=== PATIENT | female | born 1960 | race Caucasian/White ===

== ENCOUNTER → 2019-12-11 11:57 | Outpatient (BNVA) | payer MEDICARE, SELFPAY | PROVIDERS: Family Provider Nurse Practitioner Family; Visit Provider Nurse Practitioner Family | DX: N39.0 Urinary tract infection, site not specified (principal); J22 Unspecified acute lower respiratory infection; J45.909 Unspecified asthma, uncomplicated | CPT/HCPCS: 81001 ==

== ENCOUNTER → 2020-01-09 11:26 | Outpatient (BNVA) | payer MEDICARE, SELFPAY | PROVIDERS: Family Provider Nurse Practitioner Family; Visit Provider Nurse Practitioner | DX: J01.40 Acute pansinusitis, unspecified (principal); J01.90 Acute sinusitis, unspecified; E03.9 Hypothyroidism, unspecified | CPT/HCPCS: 84443 ==

== ENCOUNTER → 2020-01-10 09:25 | Outpatient (BNVA) | payer MEDICARE, SELFPAY | PROVIDERS: Family Provider Nurse Practitioner Family; Visit Provider Nurse Practitioner Family | DX: B18.2 Chronic viral hepatitis C (principal) | CPT/HCPCS: 36415; 87522 ==

== ENCOUNTER → 2020-07-14 10:29 | Outpatient (BNVA) | payer MEDICARE, SELFPAY | PROVIDERS: Family Provider Nurse Practitioner Family; Visit Provider Nurse Practitioner Family | DX: B00.2 Herpesviral gingivostomatitis and pharyngotonsillitis (principal); J45.909 Unspecified asthma, uncomplicated; E03.9 Hypothyroidism, unspecified; Z79.899 Other long term (current) drug therapy; E55.9 Vitamin D deficiency, unspecified; Z13.6 Encounter for screening for cardiovascular disorders; L30.9 Dermatitis, unspecified | CPT/HCPCS: 80053; 80061; 81003; 82306; 83036; 84443; 85025 ==

== ENCOUNTER → 2020-10-30 10:59 | Outpatient (BNVA) | payer MEDICARE, SELFPAY | PROVIDERS: Family Provider Nurse Practitioner Family; Visit Provider Nurse Practitioner Family | DX: Z20.828 Contact with and (suspected) exposure to other viral communicable diseases (principal) | CPT/HCPCS: 87635 ==

== ENCOUNTER → 2020-11-03 10:20 | Outpatient (BNVA) | payer MEDICARE, SELFPAY | PROVIDERS: Family Provider Nurse Practitioner Family; Visit Provider Family Medicine | DX: E04.1 Nontoxic single thyroid nodule (principal); F41.9 Anxiety disorder, unspecified; E55.9 Vitamin D deficiency, unspecified | CPT/HCPCS: 82306; 84443 ==

== ENCOUNTER → 2021-01-20 11:44 | Outpatient (BNVA) | payer MEDICARE, MEDICAID, SELFPAY | PROVIDERS: Family Provider Nurse Practitioner Family; PCP Nurse Practitioner Family; Visit Provider Nurse Practitioner Family | DX: J32.9 Chronic sinusitis, unspecified (principal); J34.89 Other specified disorders of nose and nasal sinuses; E78.2 Mixed hyperlipidemia; E03.9 Hypothyroidism, unspecified; Z79.899 Other long term (current) drug therapy; E55.9 Vitamin D deficiency, unspecified; R04.0 Epistaxis; M45.5 Ankylosing spondylitis of thoracolumbar region; Z98.890 Other specified postprocedural states; Z86.69 Personal history of other diseases of the nervous system and sense organs | CPT/HCPCS: 80053; 80061; 81003; 82306; 83036; 84443; 85007; 85027 ==

== ENCOUNTER → 2021-07-26 08:35 | Outpatient (BNVA) | payer MEDICARE, SELFPAY | PROVIDERS: Family Provider Nurse Practitioner Family; PCP Nurse Practitioner Family; Visit Provider Nurse Practitioner Family | DX: E78.5 Hyperlipidemia, unspecified (principal); F41.9 Anxiety disorder, unspecified; E78.2 Mixed hyperlipidemia; E55.9 Vitamin D deficiency, unspecified; Z79.899 Other long term (current) drug therapy; Z13.6 Encounter for screening for cardiovascular disorders; E03.9 Hypothyroidism, unspecified | CPT/HCPCS: 80053; 80061; 81003; 82306; 83036; 84443; 85025 ==

== ENCOUNTER → 2021-10-22 11:59 | Outpatient (BNVA) | payer MEDICARE, MEDICAID, SELFPAY | PROVIDERS: Family Provider Nurse Practitioner Family; PCP Nurse Practitioner Family; Visit Provider Nurse Practitioner Family | DX: G25.81 Restless legs syndrome (principal); E03.9 Hypothyroidism, unspecified; Z79.899 Other long term (current) drug therapy; D50.9 Iron deficiency anemia, unspecified | CPT/HCPCS: 80053; 82272; 82728; 83036; 83550; 83735; 84439; 84443; 85025 ==

== ENCOUNTER → 2021-10-28 00:01 | Outpatient (BNVA) | payer MEDICARE, SELFPAY | PROVIDERS: Family Provider Nurse Practitioner Family; PCP Nurse Practitioner Family; Visit Provider Nurse Practitioner Family | DX: Z79.899 Other long term (current) drug therapy (principal) | CPT/HCPCS: 81003 ==

== ENCOUNTER → 2022-05-17 16:57 | Outpatient (BNVA) | payer MEDICARE, MEDICAID, SELFPAY | PROVIDERS: Family Provider Nurse Practitioner Family; PCP Nurse Practitioner Family; Visit Provider Nurse Practitioner Family | DX: E78.2 Mixed hyperlipidemia (principal); E55.9 Vitamin D deficiency, unspecified; E03.9 Hypothyroidism, unspecified; Z13.6 Encounter for screening for cardiovascular disorders; Z79.899 Other long term (current) drug therapy | CPT/HCPCS: 80053; 80061; 82306; 83036; 84443; 85025 ==

== ENCOUNTER → 2022-09-13 08:36 | Outpatient (BNVA) | payer MEDICARE, MEDICAID, SELFPAY | PROVIDERS: Family Provider Nurse Practitioner Family; Visit Provider Nurse Practitioner | DX: M25.50 Pain in unspecified joint (principal) | CPT/HCPCS: 85651; 86140 ==

== ENCOUNTER 2022-11-29 17:15 | Observation (INO) | payer MEDICARE, MEDICAID, SELFPAY ==
[2022-11-29 17:17] VITALS: BP 141/89; PULSE 66; RESP 12; TEMP 36.8; O2SAT 95
--- NOTE | 2022-11-29 17:36 | CTR_ITS ---
PROCEDURE INFORMATION: Exam: CT Head Without Contrast Exam date and time: 11/29/2022 5:45 PM Age: 62 years old Clinical indication: Dizziness and speech disturbance and weakness, extremity; Bilateral; Slurred speech; Additional info: CVA TECHNIQUE: Imaging protocol: Computed tomography of the head without contrast. Radiation optimization: All CT scans at this facility use at least one of these dose optimization techniques: automated exposure control; mA and/or kV adjustment per patient size (includes targeted exams where dose is matched to clinical indication); or iterative reconstruction. COMPARISON: No relevant prior studies available. RADIATION DOSE METRICS: Total DLP (mGy-cm): 1011.95 FINDINGS: Brain: Mild diffuse white matter disease likely reflecting chronic microvascular ischemic changes. Cerebral ventricles: No ventriculomegaly. Paranasal sinuses: Visualized sinuses are unremarkable. No fluid levels. Mastoid air cells: Visualized mastoid air cells are well aerated. Bones/joints: Unremarkable. No acute fracture. Soft tissues: Unremarkable. CT/CT head wo con* [id number] IMPRESSION: Negative for intracranial hemorrhage or mass effect
--- NOTE | 2022-11-29 17:36 | XRR_ITS ---
PROCEDURE INFORMATION: Exam: XR Chest Exam date and time: 11/29/2022 5:53 PM Age: 62 years old Clinical indication: Cough and shortness of breath; Additional info: Dyspnea/cough TECHNIQUE: Imaging protocol: Radiologic exam of the chest. Views: 1 view. COMPARISON: No relevant prior studies available. FINDINGS: Lungs: Unremarkable. No consolidation. Pleural spaces: Unremarkable. No pleural effusion. No pneumothorax. Heart/Mediastinum: Unremarkable. No cardiomegaly. Bones/joints: Unremarkable. XR/XR chest 1V portable [id number] IMPRESSION: No acute findings.
--- NOTE | 2022-11-29 17:38 | ECG_ITS ---
[facility] Test Date: 2022-11-29 Pat Name: Kelly Lopez Department: Room: Gender: Female Trust Manager Assistant: : 1960 Requested By: Richard Squires Order Number: [id number] Stoney MD: Mitesh Pritchard M.D. Measurements Intervals [place] Rate: 57 P: 38 GA: 178 QRS: 55 QRSD: 89 T: 55 QT: 438 QTc: 430 Interpretive Statements SINUS BRADYCARDIA POSSIBLE RIGHT VENTRICULAR CONDUCTION DELAY [RSR (QR) IN V1/V2] No previous ECG available for comparison Electronically Signed On 11-29-2022 21:35:38 INVESTMENT PROFESSIONAL by Mitesh Pritchard M.D. [id number]
--- NOTE | 2022-11-29 18:17 | ED_ITS ---
HPI - Neuro Symptoms/Deficit General: Chief Complaint: Neuro Symptoms/Deficit Stated Complaint: STROKE LIKE SYMPTOMS Time Seen by Provider: 11/29/22 17:26 Source: patient and EMS Mode of arrival: EMS Limitations: no limitations History of Present Illness: 62-year-old female who states that yesterday she is having some chest pain is having some weakness she felt some numbness left side of her face she states she woke up this morning with a facial droop she states that yesterday she was having some slurred speech as well as along with some slurred speech she states earlier this morning since resolved she denies any weakness able to ambulate she denies any chest pain currently denies any worsening proving factors. Associated symptoms: Reports chest pain; Deny nausea or vomiting Review of Systems Const: Denies: fever(s), chills, body aches or change in appetite Eyes: Denies: blurry vision or eye discomfort ENMT: Denies: throat pain or dental pain Card: Reports: chest pain Resp: Denies: dyspnea GI: Denies: abdominal pain, nausea, vomiting or diarrhea : Denies: dysuria Musc: Denies: neck pain or back pain Skin/Breast: Denies: rash Neuro: Reports: weakness in extremities Psych: Denies: depression Chad/Lymph: Denies: easy bruising All/Imm: Denies: urticaria PFSH ED PFSH: Medical History Adult ADHD Patient has history of Adult ADH and has been treated with Methylphenidate 10mg BID. She was prescribed this by previous provider and will be out of medication soon. Patient asked that our clinic refill prescription. She was last evaluated for Adult ADHD in the late fall of 2017 before previous provider left the clinic. Ankylosing spondylitis of thoracolumbar region Anxiety Dermatitis Encounter for screening mammogram for malignant neoplasm of breast H/O chronic hepatitis Patient was recently treated for Hepatitis C and will need updated viral load from time to tiem Hypertension screen Hypothyroidism Iron deficiency anemia Medication management Mixed hyperlipidemia Nasal dryness Oral herpes simplex infection Osteoarthritis Restless leg Vitamin D deficiency Vitamin D deficiency Surgical History History of detached retina repair Status post hysterectomy Social History Smoking and tobacco status: never smoked Alcohol intake: never NIH stroke score NIHSS: Level Of Consciousness - 1a: 0 Level Of Consciousness Questions - 1b: Both Correct Level Of Consciousness Commands - 1c: Both Correct Best Gaze - 2: Normal Visual Chavez - 3: No Visual Loss Facial Palsy - 4: Partial Paralysis Motor Arm Right - 5: No Drift Motor Arm Left - 5: No Drift Motor Leg Right - 6: No Drift Motor Leg Left - 6: No Drift Limb Ataxia - 7: Absent Sensory - 8: Normal Best Language - 9: No Aphasia Dysarthia - 10: Normal Extinction And Inattention - 11: 0 Score: Total Score: 2 Course Vital Signs: Vital signs: Vital Signs Temperature 98.2 F 11/29/22 17:17 Pulse Rate 66 11/29/22 17:17 Respiratory Rate 12 11/29/22 17:17 Blood Pressure 141/89 11/29/22 17:17 Pulse Oximetry 95 11/29/22 17:17 MDM - Neuro Symptoms/Deficit Medical Decision Making Patient presents with left-sided facial droop she had some slurred speech earlier today. 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 Lab Data 11/29/22 16:28 11/29/22 16:28 Radiology Impressions Chest X-Ray 11/29/22 17:36 IMPRESSION: No acute findings. Head CT 11/29/22 17:36 IMPRESSION: Negative for intracranial hemorrhage or mass effect Laboratory Results WBC 4.8 10^3/uL (4.0-10.0) 11/29/22 16:28 RBC 4.37 10^6/uL (4.1-5.3) 11/29/22 16:28 Hgb 13.0 g/dL (11.5-15.3) 11/29/22 16:28 Hct 40.5 % (37.0-47.0) 11/29/22 16:28 MCV 92.7 fl (81-99) 11/29/22 16:28 MCH 29.7 pg (28.0-34.0) 11/29/22 16:28 MCHC 32.1 g/dL (30.0-36.0) 11/29/22 16:28 RDW 11.9 % (12.1-15.1) L 11/29/22 16: Plt Count 179 10^3/cmm (130-400) 11/29/22 16: MPV 9.1 fL (7.4-10.4) 11/29/22 16: Neut % (Auto) 52.5 % 11/29/22 16: Lymph % (Auto) 34.3 % 11/29/22 16: Curry % (Auto) 9.1 % 11/29/22 16:28 Eos % (Auto) 3.3 % 11/29/22 16: Baso % (Auto) 0.6 % 11/29/22 16: Neut # (Auto) 2.52 10^3/uL (1.8-7.7) 11/29/22 16: Lymph # (Auto) 1.7 10^3/uL (0.8-4.8) 11/29/22 16: Curry # (Auto) 0.4 10^3/uL (0.2-0.9) 11/29/22 16: Eos # (Auto) 0.2 10^3/uL (0.0-0.8) 11/29/22 16: Baso # (Auto) 0.0 10^3/uL (0.0-0.1) 11/29/22 16: Nucleated RBC % (auto) 0 % 11/29/22 16: Nucleated RBCs # 0.0 /100WBC 11/29/22 16: Sodium 142 mmol/L (136-145) 11/29/22 16: Potassium 4.1 mmol/L (3.5-5.1) 11/29/22 16: Chloride 106 mmol/L (98-107) 11/29/22 16: Carbon Dioxide 28 mmol/L (22-29) 11/29/22 16: Anion Gap 12.1 (5-19) 11/29/22 16:28 BUN 17 mg/dL (8-23) 11/29/22 16:28 Creatinine 0.6 mg/dL (0.5-0.9) 11/29/22 16: GFR Calculation 100.6 mL/min (90-130) 11/29/22 16:28 Glucose 83 mg/dL (65-115) 11/29/22 16:28 Calculated Osmolality 295 mOsm/kg (285-295) 11/29/22 16:28 Calcium 9.5 mg/dL (8.5-10.5) 11/29/22 16:28 Total Bilirubin 0.3 mg/dL (0.15-1.2) 11/29/22 16:28 AST 21 U/L (0-32) 11/29/22 16:28 ALT 18 U/L (0-33) 11/29/22 16:28 Alkaline Phosphatase 47 U/L (35-105) 11/29/22 16:28 Troponin T Baseline 6 ng/L (0-10) 11/29/22 16:28 Total Protein 6.9 g/dL (6.6-8.7) 11/29/22 16:28 Albumin 4.0 g/dL (3.5-5.2) 11/29/22 16:28 Globulin 2.9 g/dL (1.3-4.6) 11/29/22 16:28 EKG Data EKG 1: I personally reviewed and interpreted this EKG as follows: EKG interpretation date: 11/29/22 EKG interpretation time: 18:26 Interpretation: sinus bradycardia hr [address] or t wave abnormalities qrs 89 qtc 433 Discharge Plan Discharge Patient Disposition: Admitted As Inpatient Clinical Impression: Facial droop Condition: Stable Prescriptions: No Action omega-3 fatty acids 1,000 mg capsule 1,000 mg PO DAILY 90 Days Qty: 90 1RF hydrocodone-acetaminophen 10-325 mg tablet 1 tab PO TID PRN dexamethasone sodium phosphate 10 mg/mL solution 10 mg IM ONCE Qty: 1 0RF escitalopram oxalate [Lexapro] 20 mg tablet 30 mg PO QDAY Qty: 135 3RF hydroxyzine HCl 10 mg tablet See Rx Instructions .ROUTE .COMPLEX Qty: 270 2RF Dose Instruction: TAKE 1 TABLET BY MOUTH 3 TIMES DAILY NEEDED ANXIETY Rx Instructions: TAKE 1 TABLET BY MOUTH 3 TIMES DAILY NEEDED ANXIETY levothyroxine 88 mcg tablet See Rx Instructions .ROUTE .COMPLEX Qty: 90 2RF Dose Instruction: TAKE 1 TABLET BY MOUTH EVERY DAY Rx Instructions: TAKE 1 TABLET BY MOUTH EVERY DAY ropinirole 0.25 mg tablet 0.25 mg PO DAILY 30 Days Qty: 90 2RF Rx Instructions: 1-3 hours before bedtime amoxicillin 500 mg capsule 500 mg PO BID 10 Days Qty: 20 0RF rosuvastatin 5 mg tablet See Rx Instructions .ROUTE .COMPLEX Qty: 90 2RF Dose Instruction: TAKE ONE TABLET BY MOUTH EVERY DAY Rx Instructions: TAKE ONE TABLET BY MOUTH EVERY DAY prednisone 10 mg tablet 30 mg PO DAILY 5 Days Qty: 15 0RF albuterol sulfate [Ventolin HFA] 90 mcg/actuation HFA aerosol inhaler 2 puff INHALATION QID 90 Days Qty: 8.5 1RF Referrals: Xi Blank, DEYANIRA [Primary Care Provider] - Coding Level of Care Code ED Paver Installer for Mellissa Mora
[2022-11-29 18:33] LABS: Basophils % 0.6 %; Eosinophils # 0.2 10^3/uL (0.0-0.8); Eosinophils % 3.3 %; Hematocrit 40.5 % (37.0-47.0); Lymphocytes # 1.7 10^3/uL (0.8-4.8); Lymphocytes % 34.3 %; Mean Corpuscular HGB Conc 32.1 g/dL (30.0-36.0); Mean Corpuscular Hemoglobin 29.7 pg (28.0-34.0); Mean Corpuscular Volume 92.7 fl (81-99); Mean Platelet Volume 9.1 fL (7.4-10.4); Monocytes # 0.4 10^3/uL (0.2-0.9); Monocytes % 9.1 %; Neutrophils # 2.52 10^3/uL (1.8-7.7); Neutrophils % 52.5 %; Nucleated Red Blood Cells % 0 %; Platelet Count 179 10^3/cmm (130-400); Red Blood Count 4.37 10^6/uL (4.1-5.3); Red Cell Distribution Width 11.9 % (12.1-15.1); White Blood Count 4.8 10^3/uL (4.0-10.0)
[2022-11-29] MEDS: aspirin 81 mg Chew Tablet 324 MG PO (18:40)
[2022-11-29 18:52] LABS: Troponin(5th) Baseline 6 ng/L (0-10)
[2022-11-29 18:56] LABS: Alanine Aminotransferase 18 U/L (0-33); Alkaline Phosphatase 47 U/L (35-105); Anion Gap 12.1 (5-19); Aspartate Amino Transferase 21 U/L (0-32); Blood Urea Nitrogen 17 mg/dL (8-23); Calcium 9.5 mg/dL (8.5-10.5); Carbon Dioxide 28 mmol/L (22-29); Chloride 106 mmol/L (98-107); Creatinine Clr Calc Pharmacy 84.3491; Globulin 2.9 g/dL (1.3-4.6); Glomerular Filtration Rate 100.6 mL/min (90-130); Glucose 83 mg/dL (65-115); Osmolality Calculated 295 mOsm/kg (285-295); Potassium 4.1 mmol/L (3.5-5.1); Sodium 142 mmol/L (136-145); Total Bilirubin 0.3 mg/dL (0.15-1.2); Total Protein 6.9 g/dL (6.6-8.7)
[2022-11-29 19:37] VITALS: BP 166/75; PULSE 61; RESP 18; O2SAT 98
[2022-11-29 19:57] LABS: Add Urine Microscopic? NO; Charge for UA Resulting for Rev
[2022-11-29 20:00] LABS: Bilirubin Urine Neg (Negative); Blood Urine Neg (Negative); Glucose Urine UA Norm (Normal); Ketones Urine Negative (Negative); Leukocyte Esterase Urine Negative (Negative); Nitrate Urine Negative (Negative); Protein Urine Neg (Negative); Specific Gravity, Urine 1.015 (1.005-1.030); Urine Appearance Clear (CLEAR); Urine Color Yellow (Yellow); Urobilinogen Urine Norm (Negative); pH Urine 7 (5-7)
[2022-11-29 20:06] LABS: Troponin 5 2HR 6.11 ng/L (0-10)
[2022-11-29 20:31] LABS: Troponin 5 2HR Delta 0.11 ABS# (0-10)
--- NOTE | 2022-11-29 21:18 | USCV_ITS ---
Kelly Lopez Age: 62 Gender: F : 1960 Exam Date: 11/29/2022 22:07 Ordering Phys: Pratik Cagle MD Technologist: JESUS Exam Location: [facility] [place] Indication: CVA (Left facial droop , hemiparesis, slurred speech ) BP: 131 / 66 HR: 60 Rhythm: Sinus Technical Quality: Adequate MEASUREMENTS (Male / Female) Normal Values 2D ECHO LV Diastolic Diameter PLAX 3.4 cm 4.2 - 5.9 / 3.9 - 5.3 cm LV Systolic Diameter PLAX 2.2 cm IVS Diastolic Thickness 1.0 cm 0.6 - 1.0 / 0.6 - 0.9 cm IVS Systolic Thickness 1.5 cm LVPW Diastolic Thickness 1.0 cm 0.6 - 1.0 / 0.6 - 0.9 cm LVPW Systolic Thickness 1.2 cm LVOT Diameter 1.9 cm LV Ejection Fraction 2D Teich 65.2 % LV Ejection Fraction MOD 2C 66.5 % LV Ejection Fraction 2C AL 66.0 % LA Diameter 3.2 cm LA Width 3.1 cm LA Height 4.7 cm RA Width 2.9 cm RA Height 3.5 cm Aorta at Sinotubular Diameter 2.4 cm IVC Diameter 1.3 cm M-MODE Aortic Annulus Diameter 2.3 cm LA Ao Ratio MM 1.5 MV E Point Septal Separation 0.3 cm DOPPLER AV Peak Velocity 136.0 cm/s LVOT Peak Velocity 110.0 cm/s AV Area Cont Eq vti 2.7 cm squared AV Area Cont Eq pk 2.3 cm squared MV Area PHT 3.0 cm squared Mitral E to A Ratio 0.8 MV E' Velocity 48.5 cm/s Mitral E to MV E' Ratio 10.7 Mitral E to LV E' Lateral Ratio 9.4 Mitral E to LV E' Septal Ratio 12.4 TR Peak Velocity 193.0 cm/s TR Peak Gradient 14.9 mmHg Right Atrial Pressure 5.0 mmHg Pulmonary Artery Systolic Pressu 19.9 mmHg PV Peak Velocity 77.0 cm/s RV Acceleration Time 0.1 s RV Ejection Time 0.3 s RV AcT/ET 0.2 FINDINGS Left Ventricle Normal left ventricular size, systolic function and wall thickness, with no regional wall motion abnormalities. Left ventricular ejection fraction is estimated at 70 %. Normal diastolic function. Right Ventricle Normal right ventricular size and systolic function. Right ventricular systolic pressure 19.9 mmHg. Right Atrium Normal right atrial size. Left Atrium Normal left atrial size. Mitral Valve Structurally normal mitral valve. No mitral valve stenosis. Aortic Valve Structurally normal trileaflet aortic valve. No aortic valve stenosis. No aortic valve regurgitation. Tricuspid Valve Structurally normal tricuspid valve. No tricuspid valve stenosis. Trace tricuspid valve regurgitation. Pulmonic Valve Structurally normal pulmonic valve. No pulmonary valve stenosis. Trace pulmonary valve regurgitation. Pericardium No pericardial effusion. Aorta Normal size aortic root and proximal ascending aorta. IVC Normal IVC dimension with >50% respiratory change of the inferior vena cava. CONCLUSIONS 1. Normal left ventricular size, systolic function and wall thickness, with no regional wall motion abnormalities. Left ventricular ejection fraction is estimated at 70 %. Normal diastolic function. 2. No significant valvular abnormality. 3. No prior similar studies to compare. Deborah Marie MD (Electronically Signed) Final Date: 30 November 2022 10:15 S
[2022-11-29 21:22] VITALS: BP 131/66; PULSE 61; RESP 15; TEMP 36.8; O2SAT 97
--- NOTE | 2022-11-29 21:26 | PM.HP ---
Providers/Chief Complaint Admitting Physician: Pratik Cagle MD Primary Care Provider: Xi Blank APN Chief Complaint: STROKE LIKE SYMPTOMS History of Present Illness Kelly Lopez is a 62 year old female with a past medical history of ADHD, ankylosing spondylitis, anxiety, hypothyroidism, anemia, hyperlipidemia osteoarthritis, who presents [facility] as she has had a week history of chest pain, dizziness, now she has noticed that she has inability to close her left eye, left facial droop, some slurring of her words, numbness in the left side of her face. Patient tells me that for the last week she has had intermittent chest pain, substernal like something sitting on her chest, nonradiating, no lightheadedness, dizziness, lasting for hours at a time, she really did not seek any medical attention for it. She then started to notice dizziness with exertion, no presyncopal symptoms, no syncope, no palpitations. This morning when she woke up, at around 11 AM, she noticed that the left corner of her mouth was drooping she had an inability to close her left eyelid fully, she was slurring some of her words, and she had numbness in the left side of her face. So she presented to [facility] clinic and from there she was instructed to go to the emergency room. Here in the emergency room, currently she is alert oriented x3, follows all commands, no upper or lower extremity weakness, no focal weakness in her extremities, no paresthesias, no trouble coordinating. She does not have any numbness in her left side of her face anymore, she to some degree still has some persistent inability to fully close her left eye, she does have some drooping of her left corner of her mouth, she does not really have any slurring of her words anymore. No history of tick bites no history of Lyme disease, no recent history of travel. She does tell me that she has had extensive eye surgery on both eyes from Dr. Ray, her left eye has been intermittently blurry this is a bit worse since her symptoms this morning especially in the left eye Review of Systems Const: Denies: fever(s), chills, fatigue or malaise Eyes: Denies: change in vision or blurry vision ENMT: Denies: nasal congestion Card: Reports: chest pain and lightheadedness; Denies: palpitations, syncope or pre-syncope Resp: Denies: dyspnea, productive cough, non-productive cough or wheezing GI: Denies: abdominal pain, nausea, vomiting, hematemesis, diarrhea, constipation, hematochezia or melena : Denies: flank pain, dysuria or urinary frequency Musc: Denies: neck pain or back pain Skin/Breast: Denies: rash Neuro: Reports: vertigo; Denies: headache(s), numbness in extremities, weakness in extremities, lack of coordination, difficulty walking, dizziness, difficulty communicating thoughts, seizure-like activity or involuntary movements Psych: Denies: anxiety or depression Endo: Denies: polyuria or polydipsia Medications/Allergies Home Medications Medication Instructions Recorded Confirmed Last Taken Type omega-3 fatty acids 1,000 mg 1,000 mg PO DAILY 90 days #90 caps 07/21/21 11/29/22 Unknown Rx capsule hydrocodone 10 mg-acetaminophen 1 tab PO TID PRN 09/01/21 11/29/22 Unknown History 325 mg tablet albuterol sulfate 90 mcg/actuation 2 puff inhalation QID 90 days #8.5 05/17/22 11/29/22 Unknown Rx aerosol inhaler (Ventolin HFA) grams amoxicillin 500 mg capsule 500 mg PO BID 10 days #20 caps 08/26/22 11/29/22 Unknown Rx escitalopram oxalate 20 mg tablet 30 mg PO QDAY #135 tabs 08/26/22 11/29/22 Unknown Rx (Lexapro) hydroxyzine HCl 10 mg tablet See Rx Instructions .Route 08/26/22 11/29/22 Unknown Rx .COMPLEX #270 tabs levothyroxine 88 mcg tablet See Rx Instructions .Route 08/26/22 11/29/22 Unknown Rx .COMPLEX #90 tabs prednisone 10 mg tablet 30 mg PO DAILY 5 days #15 tabs 08/26/22 11/29/22 Unknown Rx ropinirole 0.25 mg tablet 0.25 mg PO DAILY 30 days #90 tabs 08/26/22 11/29/22 Unknown Rx rosuvastatin 5 mg tablet See Rx Instructions .Route 08/26/22 11/29/22 Unknown Rx .COMPLEX #90 tabs Allergies Allergy/AdvReac Type Severity Reaction Status Date / Time carbamazepine [From Tegretol] AdvReac anaphylaxis Verified 05/17/22 09:46 PFSH Acute PFSH: Medical History Adult ADHD Patient has history of Adult ADH and has been treated with Methylphenidate 10mg BID. She was prescribed this by previous provider and will be out of medication soon. Patient asked that our clinic refill prescription. She was last evaluated for Adult ADHD in the late fall of 2017 before previous provider left the clinic. Ankylosing spondylitis of thoracolumbar region Anxiety Dermatitis Encounter for screening mammogram for malignant neoplasm of breast H/O chronic hepatitis Patient was recently treated for Hepatitis C and will need updated viral load from time to the [facility] Hypertension screen Hypothyroidism Iron deficiency anemia Medication management Mixed hyperlipidemia Nasal dryness Oral herpes simplex infection Osteoarthritis Restless leg Vitamin D deficiency Vitamin D deficiency Surgical History History of detached retina repair Status post hysterectomy Family History (Updated 11/29/22 @ 21:30 by Pratik Cagle MD) Other CAD (coronary artery disease) Social History (Updated 11/29/22 @ 21:30 by Pratik Cagle MD) Smoking and tobacco status: never smoked Alcohol intake: never Substance/Drug Use: never Vitals/I&O/Wt Last Vital Signs Temp 98.2 F 11/29/22 21:22 Pulse 61 11/29/22 21:22 Resp 15 11/29/22 21:22 BP 131/66 11/29/22 21:22 Pulse Ox 97 11/29/22 21:22 O2 Del Method 11/29/22 21:22 Weight last 48 hrs Weight 58.967 kg Physical Exam Const: COMMON NORMALS: no acute distress and patient oriented x3 HENMT: COMMON NORMALS: normocephalic HEAD & SCALP: normocephalic Neck/C-Spine: COMMON NORMALS: no JVD Resp: COMMON NORMALS: normal respiratory effort, No retractions, No use of accessory muscles and clear to auscultation bilaterally AUSCULTATION: clear to auscultation bilaterally Cardio: COMMON NORMALS: no JVD, regular rate, regular rhythm, S1 normal heart sound present and S2 normal heart sound present RATE: regular rate RHYTHM: regular rhythm HEART SOUNDS: S1 normal heart sound present and S2 normal heart sound present GI: COMMON NORMALS: Normal to inspection, nondistended, normoactive bowel sounds present, Soft to palpation, non-tender, No hepatosplenomegaly present, no masses and no bruits PALPATION: Yes Soft to palpation and Yes No hepatosplenomegaly present Extremity: COMMON NORMALS: capillary refill normal, no clubbing, cyanosis or edema, no calf tenderness and no pedal edema Neuro: COMMON NORMALS: patient oriented x3, moves all extremities, no focal motor deficits and no sensory deficits noted OTHER: Pupils equal round reactive to light Visual field testing, equal bilaterally, no blurry vision or trouble reading during my examination Inability to fully close left eyelid visualized Left slight facial droop at the corner of her mouth In my opinion she does does not have reduced ability to lift left eyebrow, has eyebrow sagging Psych: COMMON NORMALS: mental status grossly normal Data 11/29/22 16:28 11/29/22 16:28 A&P Assessment and plan (1) Cade's palsy: (2) Chest pain: (3) Mixed hyperlipidemia: (4) Facial droop: Plan Facial droop -Does have features that are similar to Cade's palsy -Does have some atypical features such as her numbness -Nonetheless this seems a lot like Cade's palsy -We will start her on acyclovir, prednisone -Given atypical features, will order MRI of the brain, neurochecks, NIH stroke scale, aspiration precautions, PT OT, aspirin, statin -Has chest pain complaints, serial EKGs, serial troponins, telemetry monitoring, cardiac echo -Full code -Lovenox for DVT prophylaxis Attestations Medical Necessity Statement*: Patient requires hospitalization outpatient with observation, for chest pain, facial droop, Cade's palsy versus CVA Coding Level of Care Code Acute Code for Chg Fwd Diagnoses 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
[2022-11-29 22:00] VITALS: PULSE 74
[2022-11-29 22:28] LABS: Procalcitonin 0.02 ng/mL (0-0.5); Thyroid Stimulating Hormone 1.67 uIU/mL (0.27-4.20)
[2022-11-29 22:40] LABS: Cholesterol 116 mg/dL (0-200); HDL Cholesterol 58 mg/dL (60-100); LDL Cholesterol Calculated 41 mg/dL (50-129); LDL HDL Ratio 0.71 RATIO (0.00-3.22); Triglycerides 83 mg/dL (0-150)
[2022-11-29 22:59] LABS: Estmated Average Glucose 123; Hemoglobin A1C 5.9 % (4.0-6.0)
[2022-11-29] MEDS: predniSONE 20 mg Tablet 60 MG PO ×2 (23:07→23:08)
[2022-11-29] MEDS: enoxaparin 40 mg/0.4 mL Syringe SUBCUT (23:09)
[2022-11-29] MEDS: atorvastatin 40 mg Tablet PO (23:09)
[2022-11-29] MEDS: acyclovir 400 mg Tablet PO (23:09)
[2022-11-29 23:49] LABS: Troponin 5 6HR 6.65 ng/L (0-10)
[2022-11-30] VITALS: BP 120/71; PULSE 64; RESP 16; TEMP 36.8; O2SAT 97
[2022-11-30 00:24] LABS: Troponin 5 6HR Delta 0.65 ng/L (0-12)
[2022-11-30] MEDS: artificial tears Op Soln 15 mL Btl 1 DROP EYE-LEFT ×5 (01:45→13:59)
[2022-11-30 04:00] VITALS: BP 143/80; PULSE 73; RESP 16; TEMP 36.7; O2SAT 97
[2022-11-30] MEDS: acyclovir 400 mg Tablet PO ×2 (05:10→10:33)
[2022-11-30 05:59] LABS: Basophils % 0.5 %; Eosinophils % 0.3 %; Hematocrit 43.6 % (37.0-47.0); Hemoglobin 14.3 g/dL (11.5-15.3); Lymphocytes # 0.7 10^3/uL (0.8-4.8); Lymphocytes % 18.9 %; Mean Corpuscular HGB Conc 32.8 g/dL (30.0-36.0); Mean Corpuscular Hemoglobin 29.9 pg (28.0-34.0); Mean Corpuscular Volume 91.2 fl (81-99); Monocytes # 0.1 10^3/uL (0.2-0.9); Monocytes % 1.9 %; Neutrophils # 2.87 10^3/uL (1.8-7.7); Neutrophils % 78.4 %; Nucleated Red Blood Cells % 0 %; Platelet Count 184 10^3/cmm (130-400); Red Blood Count 4.78 10^6/uL (4.1-5.3); Red Cell Distribution Width 11.8 % (12.1-15.1); White Blood Count 3.7 10^3/uL (4.0-10.0)
[2022-11-30 06:25] LABS: Anion Gap 15.9 (5-19); Blood Urea Nitrogen 17 mg/dL (8-23); Calcium 9.1 mg/dL (8.5-10.5); Carbon Dioxide 22 mmol/L (22-29); Chloride 105 mmol/L (98-107); Creatinine Clr Calc Pharmacy 101.2189; Glomerular Filtration Rate 124.2 mL/min (90-130); Glucose 156 mg/dL (65-115); Osmolality Calculated 293 mOsm/kg (285-295); Potassium 3.9 mmol/L (3.5-5.1); Sodium 139 mmol/L (136-145)
[2022-11-30] MEDS: acetaminophen 325 mg Tablet 650 MG PO ×2 (07:41→13:45)
[2022-11-30 07:48] VITALS: BP 148/85; PULSE 72; RESP 16; TEMP 36.3; O2SAT 96
[2022-11-30] MEDS: escitalopram 10 mg Tablet 30 MG PO (08:28)
[2022-11-30] MEDS: levothyroxine 88 mcg Tablet PO (08:28)
[2022-11-30] MEDS: pantoprazole DR 40 mg Tablet PO (08:28)
[2022-11-30] MEDS: aspirin 81 mg EC Tablet PO (08:28)
[2022-11-30] MEDS: LORazepam 2 mg Tablet PO (08:49)
--- NOTE | 2022-11-30 09:10 | PC.PHAR ---
pt states she takes care of her own medications-pt states she is no longer taking ropinirole 0.25mg hs rx filled 08/26/23 90d/s pt states not taken for a month or longer
--- NOTE | 2022-11-30 09:30 | MR_ITS ---
WS: [id number] MRI HEAD WITHOUT CONTRAST TECHNIQUE: Sagittal T1, T2 axial, T2 axial FLAIR, axial and coronal T1 images, axial susceptibility w eighted imaging, axial diffusion weighted images, and coronal T2 images were obtained. CLINICAL INFORMATION: cva ve robert palsy COMPARISON: CT November 29, 2022 FINDINGS: Some images degraded by patient motion. No evidence of restricted diffusion to suggest acute ischemia. Ventricular system and basal cisterns are patent. Mild small vessel changes. Moderate parenchymal volume loss more prominent in the frontal lobes. Normal posterior fossa. Normal vascular flow voids at the skull base. No extra-axial fluid co llections. No evidence of mass or mass effect. Paranasal sinuses and mastoid air cells are well aerat ed. Normal posterior nasopharynx and normal parapharyngeal fat. No hemosiderin on susceptibly weighted images. Temporal lobes and hippocampal formations are normal i n appearance. Normal optic chiasm and pituitary infundibulum. MR/MR head wo con* [id number] IMPRESSION: 1. No evidence of restricted diffusion to suggest acute ischemia. 2. Mild small vessel changes with moderate parenchymal volume loss worse in th e frontal lobes. 3. No hemosiderin on susceptibly weighted images. 4. Normal temporal lobes and hippocampal formations. 5. No other suspicious findings.
[2022-11-30 12:00] VITALS: BP 145/85; PULSE 83; RESP 14; TEMP 36.6; O2SAT 96
--- NOTE | 2022-11-30 13:25 | P.DS_ITS ---
Discharge Providers Date of Admission: 11/29/22 19:49 Date of Discharge: November 30, 2022 Attending Provider at Admission: Pratik Cagle MD Attending Provider at Discharge: Wan Berrios MD Primary Care Provider: Xi Blank APN Diagnoses at Discharge Discharge Diagnosis (1) Cade's palsy: Status: Acute (2) Chest pain: Status: Acute (3) Mixed hyperlipidemia: Status: Acute (4) Facial droop: Status: Acute Reason for Visit Reason for Visit: STROKE LIKE SYMPTOMS Hospital Course Hospital Course HPI: Pratik Cagle MD 62 year old female with a past medical history of ADHD, ankylosing spondylitis, anxiety, hypothyroidism, anemia, hyperlipidemia osteoarthritis, who presents [facility] as she has had a week history of chest pain, dizziness, now she has noticed that she has inability to close her left eye, left facial droop, some slurring of her words, numbness in the left side of her face.? Patient tells me that for the last week she has had intermittent chest pain, substernal like something sitting on her chest, nonradiating, no lightheadedness, dizziness, lasting for hours at a time, she really did not seek any medical attention for it.? She then started to notice dizziness with exertion, no presyncopal symptoms, no syncope, no palpitations.? This morning when she woke up, at around 11 AM, she noticed that the left corner of her mouth was drooping she had an inability to close her left eyelid fully, she was slurring some of her words, and she had numbness in the left side of her face.? So she presented to [facility] and from there she was instructed to go to the emergency room.? Here in the emergency room, currently she is alert oriented x3, follows all commands, no upper or lower extremity weakness, no focal weakness in her extremities, no paresthesias, no trouble coordinating.? She does not have any numbness in her left side of her face anymore, she to some degree still has some persistent inability to fully close her left eye, she does have some drooping of her left corner of her mouth, she does not really have any slurring of her words anymore.? No history of tick bites no history of Lyme disease, no recent history of travel.? She does tell me that she has had extensive eye surgery on both eyes from Dr. Rya, her left eye has been intermittently blurry this is a bit worse since her symptoms this morning especially in the left eye. Hospital course: She was admitted for the management of: Cade's palsy as well as chest pain. CT head without contrast was done: Failed to show any acute intracranial pathology, MRI brain with was done to rule out any possible stroke: Failed to show any acute ischemia, 2D echo was done during the hospital stay: Normal left ventricular size, systolic function and wall ?thickness, with no regional wall motion abnormalities. Left ?ventricular ejection fraction is estimated at 70 %. Normal ?diastolic function. No significant valvular abnormality. EKG failed to show any acute ST-T wave changes, troponin trend was unremarkable. At the time of discharge she was not complaining of any significant chest, she was also ambulating without any chest pain, or shortness of breath. Likely noncardiac chest pain. Possibly MSK. She was having left-sided facial drop, as well as left-sided facial weakness. She was started on prednisone as well as acyclovir during the hospital stay, she was discharged on p.o. prednisone as well as valacyclovir as per Cade's palsy regimen. She has been asked to follow-up with her PCP as outpatient. Responded well to medical management and was discharged in stable condition to home. Physical Exam Const: COMMON NORMALS: patient oriented x3 HENMT: COMMON NORMALS: normocephalic and atraumatic HEAD & SCALP: normocephalic and atraumatic Resp: COMMON NORMALS: normal respiratory effort, No retractions, No use of accessory muscles and clear to auscultation bilaterally EFFORT & INSPECTION: Yes symmetric chest movement AUSCULTATION: clear to auscultation bilaterally Cardio: COMMON NORMALS: regular rate, regular rhythm, S1 normal heart sound present, S2 normal heart sound present, No gallops present (Cardio), No murmurs present (Cardio), No rub (Cardio) and Peripheral pulses 2+ throughout RATE: regular rate RHYTHM: regular rhythm HEART SOUNDS: S1 normal heart sound present and S2 normal heart sound present PERIPHERAL PULSES: Peripheral pulses 2+ throughout GI: COMMON NORMALS: Normal to inspection, nondistended, normoactive bowel sounds present, Soft to palpation, non-tender, No hepatosplenomegaly present and no masses AUSCULTATION: Yes normoactive bowel sounds PALPATION: Yes Soft to palpation and Yes No hepatosplenomegaly present RECTAL EXAM: deferred Extremity: COMMON NORMALS: no clubbing, cyanosis or edema and no pedal edema Neuro: COMMON NORMALS: patient oriented x3 OTHER: Right-sided facial weakness Discharge Data Studies Completed and Pending Completed Studies During Hospitalization Category Date Time Status CT head wo con* [id number] Stat Cat Scan 11/29/22 17:36 Completed XR chest 1V portable [id number] Stat Exams 11/29/22 17:36 Completed MR head wo con* [id number] Routine MRI 11/30/22 09:30 Completed CV. echo complete* [id number] Routine Ultrasound 11/29/22 21:18 Completed Pending at discharge Category Date Time Status LEONEL Profile Rheumatology Stat Lab 11/29/22 23:11 Received Lymes Ab IgG/IgM ref WB [Lymes Western Blot] Stat Lab 11/29/22 23:11 Received Tick Panel Stat Lab 11/29/22 23:11 Received Radiology Impressions Chest X-Ray 11/29/22 17:36 IMPRESSION: No acute findings. Head CT 11/29/22 17:36 IMPRESSION: Negative for intracranial hemorrhage or mass effect Head MRI 11/30/22 09:30 IMPRESSION: 1. No evidence of restricted diffusion to suggest acute ischemia. 2. Mild small vessel changes with moderate parenchymal volume loss worse in the frontal lobes. 3. No hemosiderin on susceptibly weighted images. 4. Normal temporal lobes and hippocampal formations. 5. No other suspicious findings. Laboratory Results WBC 3.7 10^3/uL (4.0-10.0) L 11/30/22 05:42 RBC 4.78 10^6/uL (4.1-5.3) 11/30/22 05:42 Hgb 14.3 g/dL (11.5-15.3) 11/30/22 05:42 Hct 43.6 % (37.0-47.0) 11/30/22 05:42 MCV 91.2 fl (81-99) 11/30/22 05:42 MCH 29.9 pg (28.0-34.0) 11/30/22 05:42 MCHC 32.8 g/dL (30.0-36.0) 11/30/22 05:42 RDW 11.8 % (12.1-15.1) L 11/30/22 05:42 Plt Count 184 10^3/cmm (130-400) 11/30/22 05:42 MPV 9.0 fL (7.4-10.4) 11/30/22 05:42 Neut % (Auto) 78.4 % 11/30/22 05:42 Lymph % (Auto) 18.9 % 11/30/22 05:42 [place] % (Auto) 1.9 % 11/30/22 05:42 Eos % (Auto) 0.3 % 11/30/22 05:42 Baso % (Auto) 0.5 % 11/30/22 05:42 Neut # (Auto) 2.87 10^3/uL (1.8-7.7) 11/30/22 05:42 Lymph # (Auto) 0.7 10^3/uL (0.8-4.8) L 11/30/22 05:42 [place] # (Auto) 0.1 10^3/uL (0.2-0.9) L 11/30/22 05:42 Eos # (Auto) 0.0 10^3/uL (0.0-0.8) 11/30/22 05:42 Baso # (Auto) 0.0 10^3/uL (0.0-0.1) 11/30/22 05:42 Nucleated RBC % (auto) 0 % 11/30/22 05:42 Nucleated RBCs # 0.0 /100WBC 11/30/22 05:42 Sodium 139 mmol/L (136-145) 11/30/22 05:42 Potassium 3.9 mmol/L (3.5-5.1) 11/30/22 05:42 Chloride 105 mmol/L (98-107) 11/30/22 05:42 Carbon Dioxide 22 mmol/L (22-29) 11/30/22 05:42 Anion Gap 15.9 (5-19) 11/30/22 05:42 BUN 17 mg/dL (8-23) 11/30/22 05:42 Creatinine 0.5 mg/dL (0.5-0.9) 11/30/22 05:42 GFR Calculation 124.2 mL/min (90-130) 11/30/22 05:42 Glucose 156 mg/dL (65-115) H 11/30/22 05:42 Estimat Average Glucose 123 11/29/22 16:28 Hemoglobin A1c 5.9 % (4.0-6.0) 11/29/22 16:28 Calculated Osmolality 293 mOsm/kg (285-295) 11/30/22 05:42 Calcium 9.1 mg/dL (8.5-10.5) 11/30/22 05:42 Total Bilirubin 0.3 mg/dL (0.15-1.2) 11/29/22 16: AST 21 U/L (0-32) 11/29/22 16: ALT 18 U/L (0-33) 11/29/22 16: Alkaline Phosphatase 47 U/L (35-105) 11/29/22 16:28 Troponin T Baseline 6 ng/L (0-10) 11/29/22 16: Troponin T 120 Minute 6.11 ng/L (0-10) 11/29/22 19:32 Delta Troponin T 0.11 ABS# (0-10) 11/29/22 19:32 Troponin T Hi Sens 6Hr 6.65 ng/L (0-10) 11/29/22 23:11 Troponin T Hi Sens 6Hr Delta 0.65 ng/L (0-12) 11/29/22 23:11 C-Reactive Protein 3.0 mg/L (0.0-4.9) 11/29/22 19: Total Protein 6.9 g/dL (6.6-8.7) 11/29/22 16: Albumin 4.0 g/dL (3.5-5.2) 11/29/22 16: Globulin 2.9 g/dL (1.3-4.6) 11/29/22 16:28 Triglycerides 83 mg/dL (0-150) 11/29/22 19:32 Cholesterol 116 mg/dL (0-200) 11/29/22 19:32 LDL Cholesterol, Calc 41 mg/dL (50-129) L 11/29/22 19: HDL Cholesterol 58 mg/dL (60-100) L 11/29/22 19:32 LDL/HDL Ratio 0.71 RATIO (0.00-3.22) 11/29/22 19: Cholesterol/HDL Ratio 2.00 mg/dL (0.0-4.40) 11/29/22 19:32 Procalcitonin 0.02 ng/mL (0-0.5) 11/29/22 19:32 TSH 1.67 uIU/mL (0.27-4.20) 11/29/22 19:32 Urine Color Yellow (Yellow) 11/29/22 19:45 Urine Appearance Clear (CLEAR) 11/29/22 19:45 Urine pH 7 (5-7) 11/29/22 19:45 Ur Specific [place] 1.015 (1.005-1.030) 11/29/22 19:45 Urine Protein Neg (Negative) 11/29/22 19:45 Urine Glucose (UA) Norm (Normal) 11/29/22 19:45 Urine Ketones Negative (Negative) 11/29/22 19:45 Urine Blood Neg (Negative) 11/29/22 19:45 Urine Nitrate Negative (Negative) 11/29/22 19:45 Urine Bilirubin Neg (Negative) 11/29/22 19:45 Urine Urobilinogen Norm mg/dL (Negative) 11/29/22 19:45 Ur Leukocyte Esterase Negative (Negative) 11/29/22 19:45 Vitals Last Vital Signs Temp 97.4 F L 11/30/22 07:48 Pulse 72 11/30/22 07:48 Resp 16 11/30/22 07:48 BP 148/85 11/30/22 07:48 Pulse Ox 96 11/30/22 07:48 O2 Del Method 11/30/22 07:48 Discharge Plan Discharge Patient Disposition: Home Condition: Stable Prescriptions: New prednisone 50 mg tablet 60 mg PO DAILY Qty: 6 0RF Rx Instructions: for next 6 days prednisone 20 mg tablet 40 mg PO DAILY 4 Days Qty: 10 0RF Rx Instructions: Take 40 mg po daily for 2 days and then 20 mg po daily for next 2 days. valacyclovir 1 gram tablet 1,000 mg PO TID 7 Days Qty: 21 0RF Protonix 40 mg tablet,delayed release (DR/EC) 40 mg PO DAILY Qty: 14 0RF Continued hydrocodone-acetaminophen 10-325 mg tablet 1 tab PO .Q4-6H MDD 3 tabs PRN (Reason: Pain) levothyroxine 88 mcg tablet 88 mcg PO QAM prednisolone acetate 1 % drops,suspension See Rx Instructions .ROUTE .COMPLEX Rx Instructions: 1 drp to affected eye prn for pain tid to qid when pain flares albuterol sulfate 90 mcg/actuation HFA aerosol inhaler 2 puff INHALATION QID PRN (Reason: Shortness Of Breath) hydroxyzine HCl 10 mg tablet 10 mg PO TID PRN (Reason: Anxiety) escitalopram oxalate 20 mg tablet 30 mg PO QAM rosuvastatin 5 mg tablet 5 mg PO QAM Discharge Orders: Discharge Order (Routine); Ordered 11/30/22 Ordered By: Wan Berrios Referrals: Xi Blank FNP [Primary Care Provider] - 12/07/22 1:00 pm Patient Instructions: Prednisone (By mouth), Valacyclovir (By mouth), Pantoprazole (By mouth), Cade Palsy (ED), Opioid Safety Discharge Attestations Time Spent in Discharge Care*: greater than 30 min Quality Metrics Clinical Quality Measures [ No reported AMI, CVA or VTE this stay] Coding Level of Care Code Acute Chg FW DC note Diagnoses 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
--- NOTE | 2022-11-30 14:27 | PC.PT ---
Occupational therapist evaluated patient, recommends no PT evaluation needed as patient is safely independent with transfers and ambulation greater than 150 foot distance without assistive devices, and has no needs. No PT evaluation planned at this time, also did view this patient ambulating independently in the hallway this morning without deficit.
[2022-11-30 15:08] VITALS: BP 145/85; PULSE 83; RESP 14; TEMP 36.6; O2SAT 96
--- NOTE | 2022-11-30 15:08 | PC.NURSE ---
Discharge Note Patient discharged to home via private vehicle accompanied by family member. Discharge instructions reviewed with patient and/or insurance follow up representative. Mobile pharmacy medications and/or prescriptions provided. Belongings/home medications returned.
[2022-12-01 10:50] LABS: CENTROMERE B ANTIBODY <1.0 NEG AI (<1.0 NEG); JO-1 ANTIBODY <1.0 NEG AI (<1.0 NEG); RNP ANTIBODY <1.0 NEG AI (<1.0 NEG); SCL-70 ANTIBODY <1.0 NEG AI (<1.0 NEG); SJOGREN'S ANTIBODY (SS-A) <1.0 NEG AI (<1.0 NEG); SM ANTIBODY <1.0 NEG AI (<1.0 NEG); SS-B <1.0 NEG AI (<1.0 NEG)
[2022-12-01 14:55] LABS: COMPLEMENT COMPONENT C3C 134 mg/dL (83-193); COMPLEMENT COMPONENT C4C 24 mg/dL (15-57)
[2022-12-01 15:15] LABS: Lyme AB Screen <0.90 index; Lymes IGG WB <0.90 index
[2022-12-01 16:35] LABS: ANA SCREEN, IFA NEGATIVE (NEGATIVE)
[2022-12-01 17:45] LABS: THYROID PEROXIDASE ANTIBODIES 32 IU/mL (<9)
[2022-12-02 13:10] LABS: COMPLEMENT, TOTAL (CH50) >60 U/mL (31-60)
[2022-12-03 13:55] LABS: DNA AB (DS) CRITHIDIA,IFA NEGATIVE (NEGATIVE)
[2022-12-05 17:20] LABS: E. Chaffeensis AB IGG <1:64; E. Chaffeensis AB IGM <1:20
[2022-12-06 18:09] LABS: RMSF IGG NOT DETECTED; RMSF IGM NOT DETECTED
== END 2022-11-30 15:09 | disposition home or self-care (01) ==
LOC: ER 19:43 → MEDSURG 19:50
PROVIDERS: Family Medicine; Admitting Provider Family Medicine; Emergency Provider Emergency Medicine; PCP Nurse Practitioner; Visit Provider Internal Medicine
DX: G51.0 Bell's palsy (principal); R07.9 Chest pain, unspecified; E78.2 Mixed hyperlipidemia; R29.810 Facial weakness; F90.9 Attention-deficit hyperactivity disorder, unspecified type; F41.9 Anxiety disorder, unspecified; E03.9 Hypothyroidism, unspecified; M19.90 Unspecified osteoarthritis, unspecified site; Z79.899 Other long term (current) drug therapy
CPT/HCPCS: 36415; 70450; 70551; 71045; 80048; 80053; 80061; 81003; 83036; 84145; 84443; 84484; 85025; 86140; 86160; 86162; 86235; 86255; 86376; 86617; 86618; 86666; 86757; 93005; 93306; 96372; 97165; 99285; G0378; J1650; J7512; J8499

== ENCOUNTER → 2023-03-22 09:42 | Outpatient (BNVA) | payer MEDICARE, MEDICAID, SELFPAY | PROVIDERS: PCP Nurse Practitioner; Visit Provider Nurse Practitioner | DX: M45.5 Ankylosing spondylitis of thoracolumbar region (principal); M25.50 Pain in unspecified joint; M25.40 Effusion, unspecified joint | CPT/HCPCS: 85651; 86140; 86160; 86162; 86235; 86255; 86376; 86431 ==

== ENCOUNTER → 2023-03-28 16:12 | Outpatient (BNVA) | payer MEDICARE, MEDICAID, SELFPAY | PROVIDERS: PCP Nurse Practitioner; Visit Provider Nurse Practitioner | DX: R69 Illness, unspecified (principal) | CPT/HCPCS: 81000; 87400 ==

== ENCOUNTER → 2023-06-02 08:49 | Outpatient (BNVA) | payer MEDICARE, MEDICAID, SELFPAY | PROVIDERS: PCP Nurse Practitioner; Visit Provider Nurse Practitioner Family | DX: E03.9 Hypothyroidism, unspecified (principal) | CPT/HCPCS: 83036; 86376 ==

== ENCOUNTER → 2024-01-02 11:04 | Outpatient (BNVA) | payer MEDICARE, MEDICAID, SELFPAY | PROVIDERS: PCP Nurse Practitioner Family; Visit Provider Nurse Practitioner Family | DX: R30.0 Dysuria (principal); E03.9 Hypothyroidism, unspecified; D50.9 Iron deficiency anemia, unspecified; Z79.899 Other long term (current) drug therapy | CPT/HCPCS: 80053; 80061; 81000; 83036; 84439; 84443; 85025 ==

== ENCOUNTER → 2024-01-24 12:04 | Outpatient (BNVA) | payer MEDICARE, MEDICAID, SELFPAY | PROVIDERS: PCP Nurse Practitioner Family; Visit Provider Nurse Practitioner Family | DX: N39.0 Urinary tract infection, site not specified | CPT/HCPCS: 81003 ==

== ENCOUNTER → 2024-02-23 16:11 | Outpatient (BNVA) | payer MEDICARE, MEDICAID, SELFPAY | PROVIDERS: PCP Nurse Practitioner Family; Visit Provider Nurse Practitioner Family | DX: N39.0 Urinary tract infection, site not specified (principal) | CPT/HCPCS: 81000 ==

== ENCOUNTER → 2024-04-23 16:20 | Outpatient (BNVA) | payer MEDICARE, MEDICAID, SELFPAY | PROVIDERS: PCP Nurse Practitioner Family; Visit Provider Nurse Practitioner Family | DX: R30.0 Dysuria (principal) | CPT/HCPCS: 81000 ==

== ENCOUNTER → 2024-09-09 14:49 | Outpatient (BNVA) | payer MEDICARE, SELFPAY | PROVIDERS: PCP Nurse Practitioner Family; Visit Provider Nurse Practitioner Family | DX: N39.0 Urinary tract infection, site not specified; R31.9 Hematuria, unspecified; Z79.899 Other long term (current) drug therapy; D50.9 Iron deficiency anemia, unspecified; Z13.6 Encounter for screening for cardiovascular disorders; E03.9 Hypothyroidism, unspecified; E55.9 Vitamin D deficiency, unspecified | CPT/HCPCS: 81003; 85025; 87086 ==

== ENCOUNTER 2024-09-17 06:00 | Outpatient (RCR) | payer MEDICARE, SELFPAY | END 2024-10-12 23:59 | disposition home or self-care (01) | LOC: WPT 06:00 | PROVIDERS: PCP Nurse Practitioner Family; Visit Provider Nurse Practitioner Family | DX: M54.2 Cervicalgia (principal); M54.9 Dorsalgia, unspecified; G89.29 Other chronic pain | CPT/HCPCS: 97161 ==

== ENCOUNTER → 2024-09-17 12:08 | Outpatient (BNVA) | payer MEDICARE, SELFPAY | PROVIDERS: PCP Nurse Practitioner Family; Visit Provider Nurse Practitioner Family | DX: N39.0 Urinary tract infection, site not specified (principal); D50.9 Iron deficiency anemia, unspecified; Z79.899 Other long term (current) drug therapy; Z13.6 Encounter for screening for cardiovascular disorders; E03.9 Hypothyroidism, unspecified; E55.9 Vitamin D deficiency, unspecified | CPT/HCPCS: 80053; 80061; 81003; 82306; 83036; 84443; 85025 ==

== ENCOUNTER → 2024-09-24 15:13 | Outpatient (BNVA) | payer MEDICARE, SELFPAY | PROVIDERS: PCP Nurse Practitioner Family; Visit Provider Nurse Practitioner Family | DX: R39.9 Unspecified symptoms and signs involving the genitourinary system (principal); N39.0 Urinary tract infection, site not specified; Z79.899 Other long term (current) drug therapy; R74.8 Abnormal levels of other serum enzymes; Z87.19 Personal history of other diseases of the digestive system | CPT/HCPCS: 81003; 87086; 87522 ==

== ENCOUNTER → 2025-03-03 11:38 | Outpatient (BNVA) | payer MEDICARE, SELFPAY | PROVIDERS: PCP Nurse Practitioner Family; Visit Provider Nurse Practitioner Family | DX: E55.9 Vitamin D deficiency, unspecified (principal); E03.9 Hypothyroidism, unspecified; Z13.6 Encounter for screening for cardiovascular disorders; Z87.19 Personal history of other diseases of the digestive system; R74.8 Abnormal levels of other serum enzymes; D50.9 Iron deficiency anemia, unspecified; G25.81 Restless legs syndrome; D64.9 Anemia, unspecified; Z79.899 Other long term (current) drug therapy; M45.5 Ankylosing spondylitis of thoracolumbar region; M54.41 Lumbago with sciatica, right side; G89.29 Other chronic pain; M54.2 Cervicalgia; M54.9 Dorsalgia, unspecified; N39.0 Urinary tract infection, site not specified; R31.9 Hematuria, unspecified; J34.89 Other specified disorders of nose and nasal sinuses; J40 Bronchitis, not specified as acute or chronic | CPT/HCPCS: 80053; 80061; 81003; 82306; 82607; 82728; 82746; 83036; 83550; 84443; 85025 ==

== ENCOUNTER → 2025-03-10 15:32 | Outpatient (BNVA) | payer MEDICARE, SELFPAY | PROVIDERS: PCP Nurse Practitioner Family; Visit Provider Nurse Practitioner Family | DX: Z13.6 Encounter for screening for cardiovascular disorders (principal) | CPT/HCPCS: 81003; 83735 ==

== ENCOUNTER 2025-03-19 15:18 | Outpatient (CLI) | payer MEDICARE, SELFPAY ==
--- NOTE | 2025-03-19 15:20 | MM_ITS ---
WS: [id number] BILATERAL SCREENING DIGITAL TOMOSYNTHESIS MAMMOGRAM WITH CAD HISTORY: Z12.39 - Encounter for other screening for malignant neop... COMPARISON: None available. Bilateral CC and MLO views with tomosynthesis and synthetic mammography submitted. Computer aided detection analyzed. Breast composition: The breasts are heterogeneously dense, which may obscure small masses. No suspicious masses, microcalcifications or architectural distortion. MM/MM scr BI tomosynthesis [id number] IMPRESSION: BI-RADS: 1 - Negative FOLLOW UP: 1 Year Follow-up
== END 2025-03-19 15:19 | disposition home or self-care (01) ==
LOC: MOBLMAM 15:21
PROVIDERS: PCP Nurse Practitioner Family; Visit Provider Nurse Practitioner Family
DX: Z12.31 Encounter for screening mammogram for malignant neoplasm of breast (principal); R92.333 Mammographic heterogeneous density, bilateral breasts
CPT/HCPCS: 77063; 77067

== ENCOUNTER → 2025-06-30 11:10 | Outpatient (BNVA) | payer MEDICARE, SELFPAY | PROVIDERS: PCP Nurse Practitioner Family; Visit Provider Nurse Practitioner Family | DX: Z79.899 Other long term (current) drug therapy (principal); R30.0 Dysuria; E55.9 Vitamin D deficiency, unspecified; E03.9 Hypothyroidism, unspecified; Z87.19 Personal history of other diseases of the digestive system; R74.8 Abnormal levels of other serum enzymes; D50.9 Iron deficiency anemia, unspecified; F41.9 Anxiety disorder, unspecified; D64.9 Anemia, unspecified; N89.8 Other specified noninflammatory disorders of vagina | CPT/HCPCS: 80053; 80061; 81003; 82306; 82607; 82746; 83036; 83735; 84439; 84443; 85025; 87086 ==

== ENCOUNTER → 2025-07-08 15:50 | Outpatient (BNVA) | payer MEDICARE, SELFPAY | PROVIDERS: PCP Nurse Practitioner Family; Visit Provider Nurse Practitioner Family | DX: R30.0 Dysuria (principal); Z79.899 Other long term (current) drug therapy | CPT/HCPCS: 81003; 87086 ==

== ENCOUNTER → 2025-09-29 11:13 | Outpatient (BNVA) | payer MEDICARE, SELFPAY | PROVIDERS: PCP Nurse Practitioner Family; Visit Provider Nurse Practitioner Family | DX: E55.9 Vitamin D deficiency, unspecified (principal); D50.9 Iron deficiency anemia, unspecified; Z79.899 Other long term (current) drug therapy | CPT/HCPCS: 82306; 82607; 82746; 83921; 84443 ==

== ENCOUNTER → 2025-10-22 14:18 | Outpatient (BNVA) | payer MEDICARE, SELFPAY | PROVIDERS: PCP Nurse Practitioner Family; Visit Provider Podiatrist Foot & Ankle Surgery | DX: M54.16 Radiculopathy, lumbar region (principal); M79.671 Pain in right foot; M79.672 Pain in left foot | CPT/HCPCS: 99203 ==